=== PATIENT | male | born 1940 | race Caucasian/White ===

== ENCOUNTER 2017-02-17 11:05 | Emergency (ER) | payer OTHER ==
[2017-02-17 11:09] VITALS: BP 143/79; BMI 28.4
--- NOTE | 2017-02-17 11:37 | DR.GENAD ---
HPI - PCP Primary Care Physician: MILLI PICKENS - Complaint/Symptoms Chief Complaint Doctors Comments: Three days ago patient fell from a height of six feet, sustained abrasion of left hand, left arm and right hand. There is complaint of rib cage soreness. There was no LOC from from. There is no SOB Chief Complaint:: PATIENT FELL ABOUT 6 FOOT BY A [place]. HAS SKIN TEARS ON LEFT ARM AND LEFT SIDE/CHEST SORE. - Source History Provided: Patient, Family Member - Mode of Arrival Mode of Arrival: Ambulatory - Timing Onset of Chief Complaint: 02/14/17 PMH - PMH Past Medical History: Yes Past Medical History: COPD, Diabetes, Renal Disease Past Surgical History: Yes Surgical History: Ortho Surgery Past Surgical History Comment: CYST OFF THE THYROID - Family History History of Family Medical Conditions: No - Social History Does patient currently use any type of tobacco product: No Have you used tobacco products in the last 12 months: No Type of Tobacco Use: None Does any household member use tobacco: No Do you use any recreational Drugs:: No Lives With: Family Lives Where: Home - infectious screening In the last 2 months have you had wt loss of >10#?: NO Have you had fever, night sweats or hemotysis?: No Have you traveled outside the country in the last 6 months?: No Isolation: Standard ROS - Review of Systems Constitutional: No Symptoms Reported Eyes: No Symptoms Reported ENTM: No Symptoms Reported Respiratoy: No Symptoms Reported Cardiovascular: No Symptoms Reported Gastrointestinal/Abdominal: No Symptoms Reported Genitourinary: No Symptoms Reported Neurological: No Symptoms Reported Musculoskeletal: Chest wall (tenderness w/o ecchymosis or abrasion ), Arm (left abrasion distally), Hand (left hand edematous; non tender) Integumentary: Lesions (abrasion of left hand, left distal arm ) Hematologic/Lymphatic: No Symptoms Reported Endocrine: No Symptoms Reported Psychiatric: No Symptoms Reported All Other Systems: Reviewed and Negative PE - Vital Signs Vitals: Pulse Rate 66 Respiratory Rate 20 Blood Pressure 143/79 O2 Sat by Pulse Oximetry 100 - General Limitations: No Limitations General Appearance: Alert, In No Apparent Distress - Head Head Exam: Atraumatic - ENT ENT Exam: Normal Exam External Ear Exam: Normal External Inspection TM/Canal Exam: Bilateral Normal Nose Exam: Normal Nose Exam Mouth Exam: Normal Inspection Throat Exam: Normal Inspection - Neck Neck Exam: Normal Inspection, Full ROM - Chest Chest Inspection: Normal Inspection - Respiratory Respiratory Exam: Normal Lung Sounds Bilat, Accessory Muscle Use Respiratory Exam: Bilateral Clear to Auscultation - Cardiovascular Cardiovascular Exam: Regular Rate, Normal Rhythm - Abdominal Exam Abdominal Exam: Normal Inspection, Normal Bowel Sounds Abdominal Tenderness: negative: RUQ, RLQ, LUQ, LLQ, Epigastrium, Suprapubic, Diffuse, Mild, Moderate, Severe, Other - Extremities Extremities Exam: Normal Inspection, Full ROM, Tenderness (left hand, swollen), Edema (left hand) - Back Back Exam: Normal Inspection, Full ROM - Neurologic Neurological Exam: Alert, Oriented X3, CN II-XII Intact - Psychiatric Psychiatric Exam: Normal Affect - Skin Skin Exam: Warm, Dry, Intact Course - Reevaluation 1st: Unchanged ROR - XRAY XRAY Interpreted by: Radiologist (X Ray Hand: Moderately severe erosive osteoarthritis. 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
--- NOTE | 2017-02-17 12:14 | RAD ---
HISTORY: Fall from height. Study: PA and lateral chest. Comparison: Chest x-ray dated August 06, 2015. Findings: The trachea is midline. The cardiac silhouette is unremarkable. 3 mm right upper lobe calcified gra nuloma appears unchanged given technique. Chronic emphysematous changes. The lungs are clear without focal infiltrate or effusion. The bony thorax is unremarkable. IMPRESSION: 1. No acute cardiopulmonary disease. 2. No obvious rib fracture or other osseous abnormality. If clinically concerned, rib series is more sensitive. Reported By:
--- NOTE | 2017-02-17 12:17 | RAD ---
History: Left hand pain after fall 3 days ago Study: Three views of the left and Findings: There is soft tissue swelling dorsal to the metacarpal heads. There is severe osteophytes about the interphalangeal joints especially distally. There is severe 2nd and 3rd metacarpal phalang eal joint space narrowing with osteophyte formation. There is no fracture or dislocation demonstrate d. Impression: Moderately severe erosive osteoarthritis, no evidence for fracture. Reported By:
== END 2017-02-17 12:31 | disposition home or self-care (01) ==
LOC: ER 11:24
DX: M19.90 Unspecified osteoarthritis, unspecified site (principal); W17.89XA Other fall from one level to another, initial encounter; Y92.89 Other specified places as the place of occurrence of the external cause
CPT/HCPCS: 71020; 73130; 99282